=== PATIENT | male | born 1975 | race Caucasian/White ===

== ENCOUNTER 2017-08-23 13:42 | Emergency (ER) | payer BC ==
[2017-08-23] MEDS ORDERED: IOHEXOL 350 MG/ML 10 ML VIAL (for RAD DIAG) IVCONTRAST ONE (13:43)
[2017-08-23 13:49] VITALS: BP 150/103; PULSE 75; RESP 16; TEMP 97.5; O2SAT 100
--- NOTE | 2017-08-23 14:14 | PD ---
HPI Chief Complaint: Respiratory Symptoms Time Seen by Provider: 13:53 Travel History International Travel<30 days: No Contact w/Intl Traveler<30days: No Traveled to known affect area: No History of Present Illness HPI 41-year-old male that presents to the ED for evaluation of cold-like symptoms and chest congestion. Per patient he has been having chest pressure for the past 3 days. Per patient the cold-like symptoms have been ongoing for about 2- 3 weeks now. Per patient he came here from [place] recently. He is a smoker. Denies any history of heart disease. Per patient he was seen in urgent care but he was just told to come here and he was not really evaluated much. Per patient the chest pain gets worse with deep breaths. Per patient he has it currently and is 7 out of 10. He also has back pain and neck pain. He denies any history of heart disease. No medical issues otherwise. He has not taken anything for this other than some Mucinex. No urinary or bowel movement issues. Per patient he has been coughing but no blood per patient. No urinary or bowel movement issues. PFSH Social History Alcohol Use: No Tobacco Use: No Substance Use: No Allergies-Medications (Allergen,Severity, Reaction): Coded Allergies: No Known Allergies (Verified Allergy, Unknown, 08/23/17) Reported Meds & Prescriptions Reported Meds & Active Scripts Active Guaifenesin-Codeine Liq 100-10 Mg/5 Ml Soln 5 Ml PO Q6H PRN Tessalon Perles (Benzonatate) 100 Mg Cap 100 Mg PO TID PRN Azithromycin 250 Mg Tab 250 Mg PO DIRECTED Take 2 tabs (500 mg) on day 1 then 1 tab daily x 4 days. Review of Systems Except as stated in HPI: all other systems reviewed are Neg Physical Exam Narrative GENERAL: Well-nourished, well-developed patient in no apparent distress. SKIN: Warm and dry. HEAD: Atraumatic. Normocephalic. EYES: Pupils equal and round reactive to light and accommodation. No scleral icterus. No injection or drainage. ENT: No nasal bleeding or discharge. Mucous membranes pink and moist. TMs are clear with no sign of infection or perforation. No mastoid tenderness. Ear canals are intact bilaterally. No lymphadenopathy. Nostril mucosa is red and moist with clear mucus noted. No sinus tenderness to palpation noted. Tonsils are not enlarged or swollen. No ulvua Deviation. Tongue is midline. NECK: Trachea midline. No JVD. No meningeal signs noted CARDIOVASCULAR: Regular rate and rhythm. RESPIRATORY: No accessory muscle use. Clear to auscultation. Breath sounds equal bilaterally. GASTROINTESTINAL: Abdomen soft, non-tender, nondistended. Hepatic and splenic margins not palpable. MUSCULOSKELETAL: Extremities without clubbing, cyanosis, or edema. No obvious deformities. Full range of motion of the upper and lower extremities bilaterally. 2+ pulses bilaterally. NEUROLOGICAL: Awake and alert. No obvious cranial nerve deficits. Motor grossly within normal limits. Five out of 5 muscle strength in the arms and legs. Normal speech. PSYCHIATRIC: Appropriate mood and affect; insight and judgment normal. Data Data Last Documented VS Vital Signs Date Time Temp Pulse Resp B/P (MAP) Pulse Ox O2 Delivery O2 Flow Rate FiO2 08/23/17 17:03 98.0 72 17 144/92 (109) 98 Room Air Orders Orders Electrocardiogram (08/23/17 14:01) Complete Blood Count With Diff (08/23/17 14:01) Basic Metabolic Panel (Bmp) (08/23/17 14:01) Ckmb (Isoenzyme) Profile (08/23/17 14:01) Troponin I (08/23/17 14:01) Prothrombin Time / Inr (Pt) (08/23/17 14:01) Act Partial Throm Time (Ptt) (08/23/17 14:01) D-Dimer (08/23/17 14:01) Chest, Single Ap (08/23/17 14:01) Iv Access Insert/Monitor (08/23/17 14:01) Ecg Monitoring (08/23/17 14:01) Ketorolac Inj (Toradol Inj) (08/23/17 14:15) Albuterol-Ipratropium Neb (Duoneb Neb) (08/23/17 14:15) Aspirin (Aspirin) (08/23/17 14:15) Ct Pulmonary Angiogram (08/23/17 ) Ceftriaxone Inj (Rocephin Inj) (08/23/17 16:45) Azithromycin Inj (Zithromax Inj) (08/23/17 16:45) Iohexol 350 Inj (Omnipaque 350 Inj) (08/23/17 13:43) Labs Laboratory Tests Test 08/23/17 14:00 White Blood Count 15.9 TH/MM3 Red Blood Count 4.60 MIL/MM3 Hemoglobin 14.2 GM/DL Hematocrit 39.5 % Mean Corpuscular Volume 86.0 FL Mean Corpuscular Hemoglobin 30.9 PG Mean Corpuscular Hemoglobin Concent 35.9 % Red Cell Distribution Width 13.3 % Platelet Count 230 TH/MM3 Mean Platelet Volume 8.7 FL Neutrophils (%) (Auto) 75.5 % Lymphocytes (%) (Auto) 16.0 % Monocytes (%) (Auto) 6.8 % Eosinophils (%) (Auto) 0.9 % Basophils (%) (Auto) 0.8 % Neutrophils # (Auto) 12.0 TH/MM3 Lymphocytes # (Auto) 2.5 TH/MM3 Monocytes # (Auto) 1.1 TH/MM3 Eosinophils # (Auto) 0.1 TH/MM3 Basophils # (Auto) 0.1 TH/MM3 CBC Comment DIFF FINAL Differential Comment Prothrombin Time 10.9 SEC Prothromb Time International Ratio 1.1 RATIO Activated Partial Thromboplast Time 26.5 SEC D-Dimer Quantitative (PE/DVT) 0.53 MG/L FEU Blood Urea Nitrogen 14 MG/DL Creatinine 0.84 MG/DL Random Glucose 123 MG/DL Calcium Level 8.7 MG/DL Sodium Level 141 MEQ/L Potassium Level 3.7 MEQ/L Chloride Level 107 MEQ/L Carbon Dioxide Level 26.7 MEQ/L Anion Gap 7 MEQ/L Estimat Glomerular Filtration Rate 100 ML/MIN Total Creatine Kinase 85 U/L Troponin I LESS THAN 0.02 NG/ML MDM Medical Decision Making Medical Screen Exam Complete: Yes Emergency Medical Condition: Yes Medical Record Reviewed: Yes Interpretation(s) CBC & BMP Diagram 08/23/17 14:00 Calcium Level 8.7 troponin and CKMB negative d-dimmer of 0.53 Last Impressions Chest X-Ray 08/23/17 1401 Signed Impressions: Service Date/Time: Wednesday, August 23, 2017 14:22 - CONCLUSION: Lingular infiltrate. Edson Navarro MD CT Angiography 08/23/17 0000 Signed Impressions: Service Date/Time: Wednesday, August 23, 2017 15:59 - CONCLUSION: No evidence of pulmonary embolism. Lingular infiltrate and slight infiltrate in the right middle lobe. Edson Navarro MD Differential Diagnosis Chest pain versus ACS versus PE versus pleurisy versus pneumonia versus bronchitis Narrative Course 41-year-old male that presents to the ED for evaluation of chest pain cold-like symptoms. Patient was properly examined and was found to have signs and symptoms consistent appears to be likely pleurisy with bronchitis. Cannot rule out ACS or PE. The recommend labs and imaging. Patient agrees. Patient was given medications here. Labs and imaging showed elevated d-dimer as well as what appears to be possible pneumonia. Case discussed with Dr Diaz my attending who recommends CTA due to positive d-dimmer. CTA was done. CTA was negative except for pneumonia. Patient will be treated for this with azithromycin and ceftriaxone here. Given a prescription for azithromycin and Tessalon Perles, codeine medicine. Told to continue taking oziz-eup-ydfdsle remedies as needed. Follow-up with PCP. See ED if worsening symptoms. Diagnosis Primary Impression: Pneumonia Qualified Codes: J18.1 - Lobar pneumonia, unspecified organism Patient Instructions: General Instructions Additional Instructions: Motrin and Tylenol for pain and fever. You can use [id number] antihistamine as well as well as Mucinex as needed for runny nose and congestion. Cough drops for cough as needed. Drink plenty of fluids. Follow-up with PCP. See ED for worsening symptoms. Med/Other Pt SpecificInfo: Prescription(s) given Scripts Guaifenesin-Codeine Liq (Guaifenesin-Codeine Liq) 100-10 Mg/5 Ml Soln 5 ML PO Q6H Y for COUGH, #1 BOTTLE 0 Refills Prov: Martha Diaz MD 08/23/17 Benzonatate (Tessalon Perles) 100 Mg Cap 100 MG PO TID Y for COUGH, #20 CAP 0 Refills Prov: Martha Diaz MD 08/23/17 Azithromycin (Azithromycin) 250 Mg Tab 250 MG PO DIRECTED for Infection, #6 TAB 0 Refills Take 2 tabs (500 mg) on day 1 then 1 tab daily x 4 days. Prov: Martha Diaz MD 08/23/17 Disposition: 01 DISCHARGE HOME Condition: Stable Kendall Mijares Aug 23, 2017 14:14
[2017-08-23] MEDS ORDERED: ASPIRIN 325 MG TAB PO ONE (14:15)
[2017-08-23] MEDS ORDERED: RESP: ALBUTEROL 2.5 MG/IPRATROPIUM 0.5 MG NEB (SCH) INH ONE (14:15)
[2017-08-23] MEDS ORDERED: KETOROLAC TROMETHAMINE 30 MG/ML (IVP) VIAL IV PUSH ONE (14:15)
[2017-08-23 14:26] LABS: BASOPHIL # 0.1 TH/MM3 (0-0.2); BASOPHIL % 0.8 % (0.0-2.0); EOSINOPHIL # 0.1 TH/MM3 (0-0.4); EOSINOPHIL % 0.9 % (0.0-4.0); HEMATOCRIT 39.5 % (39.0-51.0); HEMOGLOBIN 14.2 GM/DL (13.0-17.0); LYMPHOCYTE # 2.5 TH/MM3 (1.0-4.8); MEAN CORPUSCULAR HEMOGLOBIN 30.9 PG (27.0-34.0); MEAN CORPUSCULAR HGB CONC 35.9 % (32.0-36.0); MEAN PLATELET VOLUME 8.7 FL (7.0-11.0); MONO % 6.8 % (0.0-8.0); MONOCYTE # 1.1 TH/MM3 (0-0.9); NEUT % 75.5 % (16.0-70.0); PLATELET COUNT 230 TH/MM3 (150-450); RED CELL DISTRIBUTION WIDTH 13.3 % (11.6-17.2); WHITE BLOOD COUNT 15.9 TH/MM3 (4.0-11.0)
[2017-08-23 14:38] LABS: BICARBONATE 26.7 MEQ/L (21.0-32.0); BLOOD UREA NITROGEN 14 MG/DL (7-18); CALCIUM 8.7 MG/DL (8.5-10.1); CHLORIDE 107 MEQ/L (98-107); CREATININE 0.84 MG/DL (0.60-1.30); GLOMERULAR FILTRATION RATE 100 ML/MIN (>89); GLUCOSE,RANDOM 123 MG/DL (74-106); SODIUM (NA) 141 MEQ/L (136-145)
[2017-08-23 14:41] LABS: TROPONIN I LESS THAN 0.02 NG/ML (0.02-0.05)
[2017-08-23 14:42] LABS: INTERNATIONAL NORMALIZED RATIO 1.1 RATIO; PROTHROMBIN TIME - PATIENT 10.9 SEC (9.8-11.6)
[2017-08-23 14:55] LABS: D-DIMER 0.53 MG/L FEU (0.00-0.50)
[2017-08-23 14:58] VITALS: BP 145/94; PULSE 68; RESP 18; TEMP 98.1; O2SAT 98
--- NOTE | 2017-08-23 15:04 | RADRPT ---
EXAM DATE/TIME: 08/23/2017 14:22 [facility] COMPARISON: No previous studies available for comparison. INDICATIONS : Chest pain. MEDICAL HISTORY : None. SURGICAL HISTORY : None. ENCOUNTER: Initial ACUITY: 1 day PAIN SCORE: 6/10 LOCATION: Bilateral chest FINDINGS: Mild lingular infiltrate. Right lung is clear. No significant effusion. Heart size and pulmonary vasc ularity are normal. CONCLUSION: Lingular infiltrate. Edson Navarro MD on August 23, 2017 at 15:02 Board Certified Radiologist. This report was verified electronically.
[2017-08-23 15:47] VITALS: BP 142/78; PULSE 71; RESP 18; TEMP 98.2; O2SAT 98
--- NOTE | 2017-08-23 16:38 | RADRPT ---
EXAM DATE/TIME: 08/23/2017 15:59 [facility] COMPARISON: No previous studies available for comparison. INDICATIONS : Tightness in chest since yesterday. IV CONTRAST: 75 cc Omnipaque 350 (iohexol) IV RADIATION DOSE: 7.06 CTDIvol (mGy) MEDICAL HISTORY : None SURGICAL HISTORY : None. ENCOUNTER: Initial ACUITY: 1 day PAIN SCALE: 6/10 LOCATION: chest TECHNIQUE: Volumetric scanning of the chest was performed using a pulmonary embolism protocol MIP images were re constructed. Using automated exposure control and adjustment of the mA and/or kV according to patien t size, radiation dose was kept as low as reasonably achievable to obtain optimal diagnostic quality images. DICOM format image data is available electronically for review and comparison. Follow-up recommendations for detected pulmonary nodules are based at a minimum on nodule size and pa tient risk factors according to Fleischner Society Guidelines. FINDINGS: PULMONARY ARTERIES: No filling defects are seen in the pulmonary arteries through the segmental level. LUNGS: Lingular infiltrate and minimal infiltrate in the right middle lobe. PLEURAE: There is no pleural thickening or pleural effusion. MEDIASTINUM: There is good visualization of the great vessels of the middle mediastinum. No evidence of mediastin al or hilar adenopathy/mass. MUSCULOSKELETAL: Within normal limits for patient age. MISCELLANEOUS: The visualized upper abdominal organs demonstrate no acute abnormality. CONCLUSION: No evidence of pulmonary embolism. Lingular infiltrate and slight infiltrate in the right middle lobe . Edson Navarro MD on August 23, 2017 at 16:34 Board Certified Radiologist. This report was verified electronically.
[2017-08-23] MEDS ORDERED: AZITHROMYCIN INJ 500 MG in SODIUM CHLOR 0.9% 250 ML INJ 250 ML IV ONE (16:45)
[2017-08-23] MEDS ORDERED: cefTRIAXone INJ 1,000 MG in SODIUM CHLORIDE 0.9% INJ 100 ML IV ONE (16:45)
[2017-08-23] MEDS ORDERED: AZIT250T3 PO (16:54)
[2017-08-23] MEDS ORDERED: BENZ100 PO (16:54)
[2017-08-23] MEDS ORDERED: GUAI100S5 PO (16:54)
[2017-08-23 17:03] VITALS: BP 144/92; PULSE 72; RESP 17; TEMP 98; O2SAT 98
[2017-08-23 18:45] VITALS: BP 133/81; TEMP 97.8
--- NOTE | 2017-08-24 14:21 | EKG ---
Date Performed: 08/23/2017 Time Performed: 14:51:42 PTAGE: 41 years EKG: Sinus rhythm MODERATE VOLTAGE CRITERIA FOR LVH, CONSIDER NORMAL VARIANT BORDERLINE ECG PREVIOUS TRACING : 08/23/2017 14.50 DOCTOR: Juliette Álvarez Interpretating Date/Time 08/26/2017 12:59:06
== END 2017-08-23 18:49 | disposition home or self-care (01) ==
LOC: NEPE 13:42
DX: J18.1 Lobar pneumonia, unspecified organism (principal)
CPT/HCPCS: 71045; 71275; 80048; 82550; 84484; 85025; 85379; 85610; 85730; 93005; 94664; 96365; 96367; 96375; 99285; J0456; J0696; J1885; J7050; Q9967